=== PATIENT | male | born 1990 | race American Indian/Alaskan Native ===

== ENCOUNTER 2016-10-24 19:43 | Emergency (ER) | payer OTHER ==
[2016-10-24 20:14] VITALS: BP 120/70
[2016-10-24] MEDS ORDERED: MOTRIN PO ONE (21:58)
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
== END 2016-10-24 22:50 | disposition home or self-care (01) ==
LOC: ED 19:43
DX: S39.012A Strain of muscle, fascia and tendon of lower back, initial encounter (principal); F17.200 Nicotine dependence, unspecified, uncomplicated; V49.49XA Driver injured in collision with other motor vehicles in traffic accident, initial encounter; Y92.488 Other paved roadways as the place of occurrence of the external cause; Y93.89 Activity, other specified; Y99.9 Unspecified external cause status
CPT/HCPCS: 99282